=== PATIENT | female | born 1980 | race Caucasian/White ===

== ENCOUNTER 2020-05-10 09:47 | Emergency (ER) | payer OTHER, SELFPAY ==
--- NOTE | 2020-05-10 09:49 | ED.FALL ---
HPI - Fall General Chief Complaint: Fall Stated Complaint: lt shoulder pain/tailbone injury Time Seen by Provider: 05/10/20 09:49 Source: patient and RN notes reviewed History of Present Illness HPI Narrative: Patient is a 39-year-old female who presents the urgent care with complaints of pain to the tailbone and left shoulder. Patient states that [place] directly onto her tailbone. Patient states that she has been having difficulty sitting, bending at the waist and sit to stand motion. States that she also has some mild pain to the left shoulder but is able to move the left upper extremity without any difficulties. Patient states that she has been using Tylenol and ibuprofen without any relief of the tailbone pain. Denies of any lower back pain. Denies of any loss of bowel or bladder. No other acute complaints or injuries. Denies hitting her head or any loss of consciousness. No acute distress noted. Patient aware of the plan of care. Some parts of this dictation were generated by voice recognition software and may contain typographical and/or grammatical inaccuracies. Related Data Home Medications Medication Instructions Recorded Confirmed aspirin 81 mg PO DAILY 05/10/20 05/10/20 atorvastatin 40 mg PO DAILY 05/10/20 05/10/20 cetirizine 10 mg PO DAILY 05/10/20 05/10/20 empagliflozin [Jardiance] 10 mg PO DAILY 05/10/20 05/10/20 levothyroxine 112 mcg PO DAILY 05/10/20 05/10/20 liraglutide [Victoza 3-Kavon] 1.8 mg SUBCUT DAILY 05/10/20 05/10/20 montelukast 10 mg PO DAILY 05/10/20 05/10/20 Allergies Allergy/AdvReac Type Severity Reaction Status Date / Time meloxicam Allergy Unknown Swelling Verified 05/10/20 10:00 of Lip/Tongue/Throat morphine Allergy Unknown Seizure Verified 05/10/20 10:00 Review of Systems Review of Systems: Narrative: CONSTITUTIONAL: Denies fever, chills, or sweats. EYES: Denies visual changes, redness, or discharge. ENT: Denies rhinorrhea, congestion, sore throat, or otalgia. CARDIOVASCULAR: Denies chest pain, palpitations, or edema. RESPIRATORY: Denies cough or dyspnea. GASTROINTESTINAL: Denies abdominal pain, nausea, vomiting, or diarrhea. GENITOURINARY: Denies dysuria or hematuria. SKIN: Denies rash or itching. MUSCULOSKELETAL: Reports of mild left shoulder pain and severe tailbone pain NEUROLOGIC: Denies headache, numbness, or weakness. All other systems reviewed are negative, except as documented in HPI. PMFSH Comments At the time of my signature, I reviewed and agree with the nursing past medical, surgical, social, and family history. There is no relevant family history pertinent to the patient complaint. Exam Narrative: Exam Narrative: GENERAL: This is a well-nourished, well-developed patient, in no apparent distress. HEAD: normocephalic, atraumatic. EYES: PERRL. Sclera clear/white. Vision is grossly intact. EARS: External ears normal NOSE: External nose normal with no obvious nasal discharge, nares without redness, no rhinorrhea. THROAT: Mucous membranes moist NECK: Neck supple SKIN: warm, intact with no suspicious lesions or rash, good texture and turgor. NEURO: awake, alert, and oriented to person, place and time. There were no obvious focal neurologic abnormalities. EXTREMITIES: No clubbing, cyanosis, or edema. No joint tenderness, effusion, or edema noted. No obvious dislocation or deformity noted to the left shoulder/left upper extremity. Range of motion to left upper extremity within normal limits without any difficulty BACK: Nontender without deformity or crepitance. Moderate to severe tenderness directly over the coccyx Course Vital Signs Vital signs: Vital Signs Temperature 97.7 F 05/10/20 09:58 Pulse Rate 99 05/10/20 09:58 Respiratory Rate 24 H 05/10/20 09:58 Blood Pressure 123/80 05/10/20 09:58 Pulse Oximetry 100 05/10/20 09:58 Temperature 97.7 F 05/10/20 10:17 Pulse Rate 99 05/10/20 10:17 Respir
[2020-05-10 09:58] VITALS: BP 123/80; PULSE 99; RESP 24; TEMP 36.5; O2SAT 100
[2020-05-10 10:17] VITALS: BP 123/80; PULSE 99; RESP 24; TEMP 36.5; O2SAT 100
== END 2020-05-10 10:30 | disposition home or self-care (01) ==
PROVIDERS: Emergency Provider Nurse Practitioner Family; PCP Nurse Practitioner Family
DX: M53.3 Sacrococcygeal disorders, not elsewhere classified (principal); M25.512 Pain in left shoulder; E78.00 Pure hypercholesterolemia, unspecified; E11.9 Type 2 diabetes mellitus without complications; E03.9 Hypothyroidism, unspecified; F41.9 Anxiety disorder, unspecified; Z79.82 Long term (current) use of aspirin
CPT/HCPCS: 99203; G0463

== ENCOUNTER 2020-10-11 11:08 | Emergency (ER) | payer OTHER, SELFPAY ==
[2020-10-11] VITALS (7 sets, daily range): BP systolic 121–179; BP diastolic 71–106; PULSE 63–100; RESP 18–20; TEMP 36.3; O2SAT 99–100
--- NOTE | ~2020-10-11 | XR_ITS ---
EXAMINATION: XR chest 2V EXAM DATE: 10/11/2020 11:45 INDICATION: Left rib, lung pain. TECHNIQUE: Frontal and lateral projections of the chest obtained and reviewed. Comparison is made to prior examination from 12/18/2016. FINDINGS: The lungs are clear. There are no pleural effusions. The cardiomediastinal silhouette is within normal limits. There is no pneumothorax suspected. The bones and soft tissues are unremarkab le. IMPRESSION: No acute cardiopulmonary findings. Reviewed, dictated and finalized at location A.
--- NOTE | 2020-10-11 11:11 | ECG_ITS ---
Measurements Intervals [place] Rate: 94 P: 21 NC: 161 QRS: -24 QRSD: 93 T: 13 QT: 336 QTc: 422 Interpretive Statements SINUS RHYTHM LOW QRS VOLTAGE IN PRECORDIAL LEADS BORDERLINE ECG Electronically Signed On 10-11-2020 11:40:15 CDT by Sean Savage D.O.
--- NOTE | 2020-10-11 11:20 | ED.BACK ---
HPI - Back Pain/Injury General Chief Complaint: Shortness of Breath/Dyspnea Stated Complaint: issues breathing Time Seen by Provider: 10/11/20 11:10 Source: patient and RN notes reviewed Mode of arrival: ambulatory Limitations: no limitations History of Present Illness HPI Narrative: This is a 40 year old female with history of TIA, DM who presents for evaluation for evaluation of left posterior lung pain. She developed pain last night, and she notices it more with inspiration. She is unsure if she pulled a muscle. She states she is a diabetic so she wants to be checked out. She denies abdominal pain, nausea, vomiting, cough or fever . She reported some sob due to pain with inspiration. She denies leg swelling or calf pain. Related Data Home Medications Medication Instructions Recorded Confirmed aspirin 81 mg PO DAILY 05/10/20 05/10/20 atorvastatin 40 mg PO DAILY 05/10/20 05/10/20 cetirizine 10 mg PO DAILY 05/10/20 05/10/20 empagliflozin [Jardiance] 10 mg PO DAILY 05/10/20 05/10/20 levothyroxine 112 mcg PO DAILY 05/10/20 05/10/20 liraglutide [Victoza 3-Kavon] 1.8 mg SUBCUT DAILY 05/10/20 05/10/20 montelukast 10 mg PO DAILY 05/10/20 05/10/20 Allergies Allergy/AdvReac Type Severity Reaction Status Date / Time meloxicam Allergy Unknown Swelling Verified 05/10/20 10:00 of Lip/Tongue/Throat morphine Allergy Unknown Seizure Verified 05/10/20 10:00 Review of Systems Review of Systems: All systems reviewed & are unremarkable except as noted in HPI and below PMFSH Past Medical History Medical History (Updated 10/11/20 @ 14:14 by Brittney Suggs MD) Diabetes mellitus TIA (transient ischemic attack) Social History Social History (Updated 10/11/20 @ 11:24 by Brittney Suggs MD) Smoking status: Former smoker Substance use type: marijuana Exam Const: General: no acute distress and alert Orientation/consciousness: patient oriented x3 Eyes: EOM: EOMs intact bilaterally Chest: Chest palpation & inspection: normal inspection of the chest Resp: Effort & Inspection: normal respiratory effort and no retractions Auscultation: clear to auscultation bilaterally Cardio: Rate: regular rate Rhythm: regular rhythm Heart sounds: no murmurs GI: GI Palp: Yes Soft to palpation, No Tenderness to palpation present (GI) and No Guarding due to palpation present (GI) Auscultation: normal bowel sounds Back/Spine/Pelvis: Back: no CVA tenderness Skin: General skin exam: normal color Rashes: no rashes Neuro: General: patient oriented x3, moves all extremities and CN's II-XI intact bilaterally Psych: Mental Status: mental status grossly normal Affect: normal affect Course Reevaluation(s) Reevaluation #1: Patient is sitting in bed in no distress. BP 132/9 with HR 75. I discussed labs are unremarkable. D dimer negative and xray is normal. She will follow up with PCP Date: 10/11/20 Time: 14:12 Vital Signs Vital signs: Vital Signs Temperature 97.3 F L 10/11/20 11:12 Pulse Rate 99 10/11/20 11:12 Respiratory Rate 20 10/11/20 11:12 Blood Pressure 140/106 H 10/11/20 11:12 Pulse Oximetry 99 10/11/20 11:12 Temperature 97.3 F L 10/11/20 11:12 Pulse Rate 63 10/11/20 14:33 Respiratory Rate 18 10/11/20 14:33 Blood Pressure 121/84 10/11/20 14:33 Pulse Oximetry 99 10/11/20 14:33 MDM - Back Pain/Injury Lab Data Attestation: I reviewed the patient's lab results. Result diagrams: 10/11/20 11:22 10/11/20 11:22 Labs: Lab Results 10/11/20 10/11/20 10/11/20 Range/Units 11:22 11:22 11:22 WBC 9.0 (4.5-10.0) K/mm3 RBC 5.31 (4.2-5.4) M/mm3 Hgb 15.6 H (12.0-15.0) g/dL Hct 46.4 (37.0-47.0) % MCV 87.4 (80-100) fl MCH 29.4 (26-34) pg MCHC 33.6 (32-36) g/dl RDW 12.6 (11.5-14.5) % Plt Count 372 (150-375) k/mm3 MPV 9.2 (7.4-10.4) fl Immature Gran % (Auto) 0.6 H (0-0.5) % Neut % (Auto)
[2020-10-11 11:30] LABS: Basophils Absolute Auto 0.1 K/mm3 (0.0-0.1); Basophils Percent Auto 0.7 % (0.2-1.2); Eosinophils Absolute Auto 0.3 K/mm3 (0-0.3); Hematocrit 46.4 % (37.0-47.0); Hemoglobin 15.6 g/dL (12.0-15.0); Immature Granulocyte Absolute 0.05 K/mm3 (0.00-0.031); Immature Granulocyte Percent A 0.6 % (0-0.5); Lymphocytes Absolute Auto 2.17 K/mm3 (0.9-3.2); Mean Corpuscular HGB Conc 33.6 g/dl (32-36); Mean Corpuscular Hemoglobin 29.4 pg (26-34); Mean Corpuscular Volume 87.4 fl (80-100); Mean Platelet Volume 9.2 fl (7.4-10.4); Monocytes Absolute Auto 1.3 K/mm3 (0.1-0.6); Neutrophils Absolute Auto 5.2 K/mm3 (1.3-6.7); Neutrophils Percent Auto 57.7 % (45.5-73.1); Platelet Count Result 372 k/mm3 (150-375); Red Blood Count 5.31 M/mm3 (4.2-5.4); Red Cell Distribution Width 12.6 % (11.5-14.5)
[2020-10-11 11:38] LABS: INR 0.9; Prothrombin Time 12.8 Seconds (11.1-14.7)
[2020-10-11 11:44] LABS: D Dimer 0.27 ug/mL (<0.48)
[2020-10-11 11:50] LABS: Add Urine Microscopic? YES; Appearance Urine Clear (Clear); Bilirubin Urine Negative (Negative); Blood Urine Negative (Negative); Color Urine Straw (Yellow); Glucose Urine UA 3+ mg/dL (Negative); Ketones Urine Negative (Negative); Leukocyte Esterase Ur Negative LEU/UL (Negative); Mucus Urine Rare /lpf; Nitrate Urine Negative (Negative); Protein Urine Negative (Negative); Specific Grav Ur 1.026 (1.001-1.035); Squamous Epithelial Cell Urine Moderate /hpf (Few); Urobilinogen Urine Negative mg/dL (<2.0); WBC Urine 0-3 /hpf
[2020-10-11] MEDS: CYCLOBENZAPRINE HCL 10 MG TABLET PO (11:59)
[2020-10-11 12:15] LABS: Alanine Aminotransferase 43 U/L (4-35); Albumin Level 4.5 g/dL (3.5-5.1); Alkaline Phosphatase 115 U/L (38-126); Anion Gap 9 mmol/L (8-16); Aspartate Amino Transferase 66 U/L (14-36); Bilirubin,Total 0.6 mg/dL (0.2-1.3); Blood Urea Nitrogen 12 mg/dL (7-17); Calcium 9.6 mg/dL (8.4-10.2); Carbon Dioxide 25 mmol/L (22-30); Chloride 105 mmol/L (98-107); Estimated Glomerular Filt Rate > 60; Glucose 148 mg/dL (65-105); Sodium 139 mmol/L (137-145)
[2020-10-11 12:19] LABS: Troponin I < 0.012 ng/mL (0.000-0.034)
[2020-10-11 13:07] LABS: CRP 1.8 mg/dL (<1.0)
[2020-10-11] MEDS: IBUPROFEN 400 MG TABLET 800 MG PO (14:27)
== END 2020-10-11 14:30 | disposition home or self-care (01) ==
PROVIDERS: Emergency Provider General Practice; PCP Nurse Practitioner Family
DX: R07.81 Pleurodynia (principal); E11.9 Type 2 diabetes mellitus without complications; Z86.73 Personal history of transient ischemic attack (TIA), and cerebral infarction without residual deficits; Z79.82 Long term (current) use of aspirin; Z79.84 Long term (current) use of oral hypoglycemic drugs; Z87.891 Personal history of nicotine dependence; R94.31 Abnormal electrocardiogram [ECG] [EKG]
CPT/HCPCS: 36415; 71046; 80053; 81001; 84484; 85025; 85380; 85610; 85730; 86140; 93005; 99284; A9270

== ENCOUNTER 2020-12-02 17:14 | Emergency (ER) | payer OTHER, SELFPAY ==
--- NOTE | ~2020-12-02 | XR_ITS ---
XR lumbar spine 2-3V 12/02/2020 17:35 Indication: Low back pain Procedure: 3 views lumbar spine Comparison: No prior studies for comparison. Findings: Mild levocurvature of the lumbar spine. Mild disc narrowing at L3-4. No fracture, subluxati on or dislocation. No evidence for spondylolisthesis. Pedicles intact. Sacral foramen are symmetric. Impression: 1: Mild lumbar spondylosis. Reviewed, dictated and finalized at location A. Impression: 1: Mild lumbar spondylosis.
--- NOTE | 2020-12-02 17:18 | ED.BACK ---
HPI - Back Pain/Injury General Chief Complaint: Back Pain/Injury Stated Complaint: back pain Time Seen by Provider: 12/02/20 17:18 Source: patient and RN notes reviewed Mode of arrival: ambulatory Limitations: no limitations History of Present Illness HPI Narrative: 40-year-old female presents to the [facility] with complaints of low back pain since Thursday. Denies injury. patient states that she was having right shoulder pain and had seen her PCM Thursday, Flexeril and diclofenac. Hx of back pain over the last 15 years. States that over the last year she has lost 90lbs, pain has improved. Denies any loss retention of bowel or bladder. No abdominal pain. Patient states the pain starts in the lower right back, sciatic area, radiating up into the left shoulder. Related Data Home Medications Medication Instructions Recorded Confirmed aspirin 81 mg PO DAILY 05/10/20 05/10/20 atorvastatin 40 mg PO DAILY 05/10/20 05/10/20 cetirizine 10 mg PO DAILY 05/10/20 05/10/20 empagliflozin [Jardiance] 10 mg PO DAILY 05/10/20 05/10/20 levothyroxine 112 mcg PO DAILY 05/10/20 05/10/20 liraglutide [Victoza 3-Kavon] 1.8 mg SUBCUT DAILY 05/10/20 05/10/20 montelukast 10 mg PO DAILY 05/10/20 05/10/20 cyclobenzaprine mg 12/02/20 diclofenac sodium PO 12/02/20 Allergies Allergy/AdvReac Type Severity Reaction Status Date / Time meloxicam Allergy Unknown Swelling Verified 05/10/20 10:00 of Lip/Tongue/Throat morphine Allergy Unknown Seizure Verified 05/10/20 10:00 Review of Systems Review of Systems: All systems reviewed & are unremarkable except as noted in HPI and below Constitutional: Constitutional: Reports no additional constitutional complaints, Denies chills and Denies fever(s) Eyes: Eyes: Reports no additional eye complaints ENT: Reports system reviewed and no additional complaints, except as documented Cardiovascular: Cardiovascular: Reports no additional cardiovascular complaints and Denies chest pain Respiratory: Respiratory: Reports no additional respiratory complaints, Denies chest congestion, Denies cough, Denies dyspnea and Denies wheezing Gastrointestinal: Gastrointestinal: Reports no additional gastrointestinal complaints, Denies abdominal pain, Denies nausea and Denies vomiting Musculoskeletal: Musculoskeletal: Reports abnormal gait, Reports back pain, Denies joint swelling, Denies neck pain and Denies numbness Comments: On exam it was noted that the right hip was approximately 1 cm higher than the left. Patient states that has been going on since she was young. Never discussed that with her primary. Integumentary/Breasts: Skin/Breast: Reports system reviewed and no additional complaints, except as docu, Denies erythema and Denies rash Neurologic: Reports system reviewed and no additional complaints, except as documented, Denies headache(s), Denies focal weakness, Denies numbness and Denies weakness Psychiatric: Psychiatric: Reports no additional psychiatric complaints Endocrine: Endocrine: Reports no additional endocrine complaints Hematologic/Lymphatic: Hematologic/Lymphatic: Reports no additional hematologic/lymphatic complaints Allergic/Immunologic: Allergic/Immunologic: Reports no additional allergic/immunologic complaints PMFSH Past Medical History Medical History Diabetes mellitus TIA (transient ischemic attack) Social History Social History Smoking status: Former smoker Substance use type: marijuana Comments At the time of my signature, I reviewed and agree with the nursing past medical, surgical, social, and family history. There is no relevant family history pertinent to the patient complaint. Exam Const: General: alert and ill appearing acutely (pain) Nutritional Appearance: well nourished Orientation/consciousness: patient oriented x3 Limitations: no limitations Other: tearful HENMT: H
[2020-12-02 17:21] VITALS: BP 124/79; PULSE 97; RESP 18; TEMP 36.2; O2SAT 100
== END 2020-12-02 18:11 | disposition home or self-care (01) ==
PROVIDERS: Emergency Provider Nurse Practitioner; PCP Nurse Practitioner Family
DX: M47.816 Spondylosis without myelopathy or radiculopathy, lumbar region (principal); E11.9 Type 2 diabetes mellitus without complications; Z86.73 Personal history of transient ischemic attack (TIA), and cerebral infarction without residual deficits
CPT/HCPCS: 72100; 99213; G0463

== ENCOUNTER 2021-07-10 01:21 | Day surgery (SDC) | payer OTHER, SELFPAY ==
[2021-05-08 13:33] VITALS: BMI 28.5
--- NOTE | 2021-07-08 13:22 | PM.HPGS ---
History of Present Illness History of Present Illness Consent: Risks, benefits, and alternatives have been discussed and questions answered. Patient agrees to proceed with procedure. Chief complaint: GERD Review of Systems Review of Systems: All systems reviewed & are unremarkable except as noted in HPI and below PMFSH Past Medical History Medical History Diabetes mellitus TIA (transient ischemic attack) Social History Social History Smoking packs per day: 1 Smoking cigarettes per day: 20.0 Years smoked: 15 Smoking pack-years: 15.00 Smoking status: Former smoker Tobacco type: cigarettes Substance use: current Substance use type: marijuana Living arrangements: with family Spiritual care concerns: No Meds Home Medications and Allergies Home Medications Medication Instructions Recorded Confirmed Type aspirin 81 mg PO DAILY 05/10/20 05/08/21 History atorvastatin 40 mg PO DAILY 05/10/20 05/08/21 History cetirizine 10 mg PO DAILY 05/10/20 05/08/21 History empagliflozin [Jardiance] 10 mg PO DAILY 05/10/20 05/08/21 History levothyroxine 112 mcg PO DAILY 05/10/20 05/08/21 History montelukast 10 mg PO DAILY 05/10/20 05/08/21 History ibuprofen 600 mg PO TID PRN #60 tablet 12/02/20 05/08/21 Rx Nexium 1 tablet PO DAILY 05/08/21 05/08/21 History dextroamphetamine-amphetamine 20 mg PO DAILY 05/08/21 05/08/21 History Allergies Allergy/AdvReac Type Severity Reaction Status Date / Time meloxicam Allergy Unknown Swelling Verified 07/10/21 07:36 of Lip/Tongue/Throat morphine Allergy Unknown Seizure Verified 07/10/21 07:36 Exam Const: General: alert Orientation/consciousness: patient oriented x3 Resp: Auscultation: clear to auscultation bilaterally Cardio: Rhythm: regular rhythm GI: GI Palp: Yes Soft to palpation and No Tenderness to palpation present (GI) Neuro: General: patient oriented x3 Assessment and Plan Assessment and plan (1) GERD (gastroesophageal reflux disease): Code(s): K21.9 - Gastro-esophageal reflux disease without esophagitis Status: Acute Assessment and Plan: EGD with possible biopsy or dilatation or cautery. (2) Nausea and vomiting: Code(s): R11.2 - Nausea with vomiting, unspecified Status: Acute (3) Weight loss: Code(s): R63.4 - Abnormal weight loss Status: Acute Assessment and Plan: EGD with possible biopsy or dilatation or cautery.
[2021-07-10 07:29] LABS: Glucose Point of Care 159 mg/dl (65-105)
[2021-07-10 07:38] VITALS: BP 118/85; PULSE 86; RESP 18; TEMP 36.1; O2SAT 100; BMI 28.6
[2021-07-10] MEDS: LACTATED RINGERS 1,000 ML 150 ML IV CONT (07:49)
--- NOTE | 2021-07-10 07:51 | WPDANESEPPF ---
Anes - Initial Pre Proc Eval Procedure: Operation Date: 07/10/21 08:30 Proposed Procedures p Esophagogastroduodenoscopy - Johny Silverman MD Date/Time: 07/10/21 07:51 Surgeon: Johny Silverman MD Pre Op Diagnosis: GERD Patient Data Age: 40 Gender: F Height: 1.8 m Weight: 93.1 kg Last Vital Signs Temp 36.1 C L 07/10/21 07:38 Pulse 86 07/10/21 07:38 Resp 18 07/10/21 07:38 BP 118/85 07/10/21 07:38 Pulse Ox 100 07/10/21 07:38 Allergies Allergy/AdvReac Type Severity Reaction Status Date / Time meloxicam Allergy Unknown Swelling Verified 07/10/21 07:36 of Lip/Tongue/Throat morphine Allergy Unknown Seizure Verified 07/10/21 07:36 Home Medications Medication Instructions Recorded Confirmed Type aspirin 81 mg PO DAILY 05/10/20 05/08/21 History atorvastatin 40 mg PO DAILY 05/10/20 05/08/21 History cetirizine 10 mg PO DAILY 05/10/20 05/08/21 History empagliflozin [Jardiance] 10 mg PO DAILY 05/10/20 05/08/21 History levothyroxine 112 mcg PO DAILY 05/10/20 05/08/21 History montelukast 10 mg PO DAILY 05/10/20 05/08/21 History ibuprofen 600 mg PO TID PRN #60 tablet 12/02/20 05/08/21 Rx Nexium 1 tablet PO DAILY 05/08/21 05/08/21 History dextroamphetamine-amphetamine 20 mg PO DAILY 05/08/21 05/08/21 History Laboratory Tests 07/10/21 07:26 POC Capillary Glucose 159 mg/dl H mg/dl (65-105) Patient hx anesthesia problems: none Family hx anesthesia problems: none Results Review: All pre-operative results and documents have been reviewed as part of the pre-operative evaluation. [facility] Past Medical History Medical History Diabetes mellitus TIA (transient ischemic attack) Social History Social History Smoking packs per day: 1 Smoking cigarettes per day: 20.0 Years smoked: 15 Smoking pack-years: 15.00 Smoking status: Former smoker Tobacco type: cigarettes Substance use: current Substance use type: marijuana Living arrangements: with family Spiritual care concerns: No Anes - Eval Final PreProcedure Day of Procedure 07/10/21 07:51 Patient weight: overweight Heart: regular rate and rhythm Lungs: clear to auscultation Airway: Mallampati scale class II Neurological: alert and oriented Last oral intake: >/= 8 hours ASA classification: III Emergent: no Anesthetic plan: proceed Anesthesia type and monitoring: general GIVS and standard monitoring Results Review: All pre-operative results and documents have been reviewed as part of the pre-operative evaluation. Informed Consent: The patient's anesthetic plan and its attendant risks and benefits were discussed with the patient/family/POA. Questions were solicited and answers provided to the satisfaction of the patient/family/POA.
--- NOTE | 2021-07-10 08:14 | WPDGICN ---
Assessment and Plan Assessment and plan (1) Weight loss: Code(s): R63.4 - Abnormal weight loss Status: Acute Assessment and Plan: EGD with possible biopsy or dilatation or cautery. (2) Nausea and vomiting: Code(s): R11.2 - Nausea with vomiting, unspecified Status: Acute Assessment and Plan: we discussed cannabinoid syndrome. She is fairly certain that using cannabis daily is not a factor in her symptoms. (3) GERD (gastroesophageal reflux disease): Code(s): K21.9 - Gastro-esophageal reflux disease without esophagitis Status: Acute GI Consult Note Consult date/time: 07/10/21 08:14 HPI: Janis Velazquez is a 40 year old female Janis Velazquez is a 40 year old female referred for investigation of persistent and severe vomiting. She states that beginning about 18 months ago she has almost daily nausea from the time she wakes up in the morning. Every so often she will have a day of severe vomiting, retching and bringing up nothing but bile or more recently sometimes coffee-ground material. Because of this she has lost about 90 or 95 lb in the past 16 months. I asked her about cannabis. She does use it daily but is certain that that is not a factor. She states that she stopped using cannabis for a while and her symptoms did not subside. She had been on ranitidine for many years and Nexium for the last few years for reflux. She is on dextroamphetamine but does not believe that it who had made her symptoms any worse. Review of Systems Review of Systems: All systems reviewed & are unremarkable except as noted in HPI and below PMFSH Past Medical History Medical History Diabetes mellitus TIA (transient ischemic attack) Social History Social History Smoking packs per day: 1 Smoking cigarettes per day: 20.0 Years smoked: 15 Smoking pack-years: 15.00 Smoking status: Former smoker Tobacco type: cigarettes Substance use: current Substance use type: marijuana Living arrangements: with family Spiritual care concerns: No Meds Home Medications and Allergies Home Medications Medication Instructions Recorded Confirmed Type aspirin 81 mg PO DAILY 05/10/20 05/08/21 History atorvastatin 40 mg PO DAILY 05/10/20 05/08/21 History cetirizine 10 mg PO DAILY 05/10/20 05/08/21 History empagliflozin [Jardiance] 10 mg PO DAILY 05/10/20 05/08/21 History levothyroxine 112 mcg PO DAILY 05/10/20 05/08/21 History montelukast 10 mg PO DAILY 05/10/20 05/08/21 History ibuprofen 600 mg PO TID PRN #60 tablet 12/02/20 05/08/21 Rx Nexium 1 tablet PO DAILY 05/08/21 05/08/21 History dextroamphetamine-amphetamine 20 mg PO DAILY 05/08/21 05/08/21 History Allergies Allergy/AdvReac Type Severity Reaction Status Date / Time meloxicam Allergy Unknown Swelling Verified 07/10/21 07:36 of Lip/Tongue/Throat morphine Allergy Unknown Seizure Verified 07/10/21 07:36 Vital Signs Vital Signs - 24 hr 07/10/21 07:38 Temperature 36.1 C L Pulse Rate 86 Respiratory Rate 18 Blood Pressure 118/85 Pulse Oximetry 100 Exam Const: General: alert Orientation/consciousness: patient oriented x3 Resp: Auscultation: clear to auscultation bilaterally Cardio: Rhythm: regular rhythm GI: GI Palp: Yes Soft to palpation and No Tenderness to palpation present (GI) Neuro: General: patient oriented x3 AMG Consult Billing Observation Consult [id number] New Pt Lvl 3 Detail
[2021-07-10 08:38] VITALS: BP 101/66; PULSE 73; RESP 17; O2SAT 99
[2021-07-10 08:48] VITALS: BP 118/70; PULSE 87; RESP 20; O2SAT 99
[2021-07-10 08:58] VITALS: BP 123/84; PULSE 76; RESP 20; O2SAT 100
== END 2021-07-10 09:11 | disposition home or self-care (01) ==
PROVIDERS: PCP Nurse Practitioner Family; Visit Provider Internal Medicine Gastroenterology
PROC: 0DJ08ZZ Inspection of Upper Intestinal Tract, Via Natural or Artificial Opening Endoscopic (ICD-10-PCS; CPT 43235; principal; 2021-07-10 08:30)
DX: K21.9 Gastro-esophageal reflux disease without esophagitis (principal); K31.84 Gastroparesis; R11.2 Nausea with vomiting, unspecified; R63.4 Abnormal weight loss; E11.9 Type 2 diabetes mellitus without complications; Z86.73 Personal history of transient ischemic attack (TIA), and cerebral infarction without residual deficits; Z87.891 Personal history of nicotine dependence; Z79.82 Long term (current) use of aspirin
CPT/HCPCS: 43239; 82948; 87081; 88305; J2704; J7120

== ENCOUNTER 2023-07-15 06:45 | Outpatient (CLI) | payer OTHER, SELFPAY ==
--- NOTE | ~2023-07-15 | MR_ITS ---
MRI of the lumbar spine Clinical History: Back pain Technique: Axial T2-weighted images, and sagittal T1-weighted, T2-weighted, and T2 fat-sat images wer e acquired. Findings: There is no acute fracture or subluxation of the lumbar spine. Vertebral bodies maintain no rmal height and line. No suspicious bone marrow signal abnormality seen. There is mild reactive marro w signal changes about the L3-L4 disc space due to underlying degenerative disc disease. At L1-L2, there is no disc bulge or herniation. There is minimal facet joint hypertrophy. No central canal stenosis or neural foraminal narrowing. At L2-L3, there is mild disc bulge with tiny annular fissure. No central canal stenosis or neural for aminal narrowing. At L3-L4, there is diffuse disc bulge with mild facet arthropathy. No central canal stenosis. There i s moderate right neural foraminal narrowing. Left neural foramen preserved. At L4-L5, there is mild diffuse disc bulge and bilateral facet arthropathy. No central canal stenosis . There is minimal left neural foraminal narrowing. Right neural foramen preserved. At L5-S1, there is right paracentral disc protrusion with mild facet arthropathy. No central canal st enosis. There is mild bilateral neural foraminal narrowing. Paravertebral soft tissues are unremarkable. Impression: Mild degenerative spondylosis, as above. Reviewed, dictated and finalized at [facility]. [employer] Impression: Mild degenerative spondylosis, as above.
== END 2023-07-15 06:46 | disposition home or self-care (01) ==
PROVIDERS: PCP Nurse Practitioner Family; Visit Provider Nurse Practitioner Family
DX: M54.50 Low back pain, unspecified (principal); M43.06 Spondylolysis, lumbar region
CPT/HCPCS: 72148